=== PATIENT | male | born 1980 | race Caucasian/White ===

== ENCOUNTER → 2024-01-08 07:35 | Outpatient (REF) | payer BC, SELFPAY | LOC: RAD 07:35 | PROVIDERS: ATTENDING PHYSICIAN Student in an Organized Health Care Education/Training Program | DX: M79.605 Pain in left leg (principal); M25.572 Pain in left ankle and joints of left foot | CPT/HCPCS: 93971 ==

== ENCOUNTER 2024-06-30 20:57 | Emergency (ER) | payer BC, SELFPAY ==
[2024-06-30 21:00] VITALS: BP 129/79
[2024-06-30 21:19] LABS: % Basophils 1.7 % (0-2); % Eosinophils 4.9 % (0-6); % Immature Granulocytes 0.5 % (0-0.5); % Lymphocytes 39.6 % (20.5-51.1); % Monocytes 5.9 % (1.7-9.3); % Neutrophils 47.4 % (42.2-75.2); Absolute Basophils 0.1 10^3/uL (0-0.2); Absolute Eosinophils 0.4 10^3/uL (0-0.7); Absolute Lymphocytes 3.1 10^3/uL (1.2-3.4); Absolute Monocytes 0.5 10^3/uL (0.1-0.6); Absolute Neutrophils 3.7 10^3/uL (1.4-6.5); Hematocrit 44.3 % (39.0-52.0); Hemoglobin 14.6 g/dL (13.0-18.0); Mean Corpuscular Hgb 28.2 pg (27.0-31.0); Mean Corpuscular Volume 85.7 fL (80.0-94.0); Mean Platelet Volume 9.6 fL (7.4-10.4); Nucleated Red Blood Cells % 0 % (-); Platelet Count 215 10^3/uL (130-400); Red Blood Cell Count 5.17 10^6/uL (4.70-6.10); Red Cell Dist. Width 14.2 % (11.5-14.5); White Blood Cell Count 7.8 10^3/uL (4.8-10.8)
--- NOTE | 2024-06-30 21:37 | ED.GENMED ---
History of Present Illness
General
Chief Complaint: Urinary Symptoms
Source: patient
Exam Limitations: none
Time Seen by Provider: 06/30/24 21:20
History of Present Illness
History of Present Illness:
43-year-old male who presents with dark-colored urine. Patient states that his a [employer] LOC and noticed he had bilateral upper leg pain. 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
Patient is on anticoagulation due to history of factor V Leiden. Patient denies any other symptoms. Muscle aches are only in the thighs
Past History
Past History
ED Past Medical History: Other (Questionable bowel blockage 20 years ago Patient is not sure, DVT)
ED Past Surgical History: Tonsilectomy
Social History
Tobacco: Non-smoker
Alcohol: Occasional
Personal:
Living: with family
Phy Exam
Physical Exam
Physical Exam:
CONSTITUTIONAL Patient alert and oriented to person, place and time. Well-appearing. Vital signs reviewed.
HEAD atraumatic, normocephalic.
EYES eyelids normal to inspection, Extraocular muscles intact, Conjunctiva normal, Sclera normal.
NECK normal range of motion, Trachea midline, no jugular venous distention.
RESPIRATORY CHEST No respiratory distress noted, Chest expansion equal, Bilateral breath sounds clear.
CARDIOVASCULAR regular rate and rhythm, Heart sounds normal.
BACK normal inspection, no obvious deformities
UPPER EXTREMITY range of motion normal, Motor strength normal, no cyanosis, no edema.
LOWER EXTREMITY range of motion normal, Motor strength normal, no cyanosis, no edema.
NEURO Speech normal, No focal motor deficits, Jose Alberto coma scale 15, Memory normal, Cranial Nerves intact to screening exam.
SKIN skin warm, dry, and normal in color.
Course
Orders/Labs/Results
Orders:
Orders
06/30/24 21:12
Complete Blood Count/With Diff Urgent
Comprehensive Metabolic Panel Urgent
Creatine Phosphokinase Urgent
Comment: ADD ON
06/30/24 21:19
Add On- LAB Urgent
Tests Added?: cpk
06/30/24 21:36
0.9% Sodium Chloride 1000 ml [Nss] 1,000 ml IV BOLUS
06/30/24 22:04
0.9% Sodium Chloride 1000 ml [Nss] 1,000 ml IV BOLUS
Abnormal Lab Results
06/30/24
21:12
Chloride 111 H mmol/L
(98-107)
ALT 51 H U/L
(0-50)
Creatine Kinase 1119 H U/L
(55-170)
06/30/24 21:12
06/30/24 21:12
Vital Signs
Initial and Last Documented VS:
Initial Vital Signs
Temp Pulse Resp BP Pulse Ox
97.3 F 52 16 129/79 100
06/30/24 21:00 06/30/24 21:00 06/30/24 21:00 06/30/24 21:00 06/30/24 21:00
Last Documented Vital Signs
Temp Pulse Resp BP Pulse Ox
97.3 F 63 20 129/76 96
06/30/24 21:00 06/30/24 21:57 06/30/24 21:57 06/30/24 21:57 06/30/24 21:57
MDM/Problems Addressed
Differential Diagnosis Includes:
Rhabdomyolysis, UTI
MDM/Problems Addressed:
Rhabdomyolysis
*Pulse Oximetry
Patient hypoxic: no
*Critical Care Note
Total Time (30-74mins, 75-104mins- exclusive of procedures): Not Applicable
Data Reviewed
Source: patient
Prescriptions/Medications Considered But Not Given:
Consider bicarb but creatinine okay and CPK only mildly
Patient Management
Escalation/DeEscalation of care consider admission/obs:
Mild bump in CPK that likely represents the cause of his symptoms as rhabdomyolysis. However, given his numbers he is well-appearing. Give 2 L of IV fluid and okay for outpatient management
ED Attending Note
-
Portions of this chart may have been created with voice recognition software.� Occasional wrong word or��sound alike� substitutions may have occurred due to the inherent limitations of voice recognition software.
Discharge Plan
Departure
Patient Disposition: Home (Routine Discharge)
Date of Disposition: 06/30/24
Time of Disposition: 22:19
Patient with high blood pressure during this ER visit?: No
Discharge Problem:
Rhabdomyolysis
Instructions: Rhabdomyolysis
Prescriptions:
No Action
allopurinol 100 mg Tablet
100 mg PO DAILY
Xarelto
25 mg PO DAILY
Referrals:
UNKNOWN,NO INTERVIEW [Family Provider] -
Activity Restrictions/Additional Instructions:
Please drink plenty of fluids. Please return immediately for worsening, fevers, difficulty urinating, diminished urine output or any other concerns. Please see your doctor in the next 3 to 5 days for reevaluation and possibly repeat laboratory
studies
Interventions
Interventions:
*Risk Screen - Suicide Last Done: 06/30/24 21:04
*General Assessment Last Done: 06/30/24 21:04
*Neglect/Abuse Screening Last Done: 06/30/24 21:04
*ED COVID-19 Vaccine History Last Done: 06/30/24 21:04
ED-Male Genitourinary Assessment Last Done: 06/30/24 21:57
ED-Musculoskeletal Assessment Last Done: 06/30/24 21:57
Discharge Date and Time
Print Language: COLOM[place]
[2024-06-30 21:39] LABS: ALT (SGPT) 51 U/L (0-50); AST (SGOT) 51 U/L (17-59); Albumin 4.3 g/dl (3.5-5.0); Alkaline Phosphatase 54 U/L (38-126); Blood Urea Nitrogen 14 mg/dl (9-20); Calcium 8.9 mg/dl (8.4-10.2); Carbon Dioxide 26 mmol/L (22-30); Chloride 111 mmol/L (98-107); Creatine Phosphokinase 1119 U/L (55-170); Glucose 85 mg/dl (70-99); Potassium 3.9 mmol/L (3.5-5.1); Sodium 141 mmol/L (135-145); Total Bilirubin 0.8 mg/dl (0.2-1.3); Total Protein 6.9 g/dl (6.3-8.2); eGFR > 60.00
[2024-06-30] MEDS: NSS 1000 IV ×2 (21:44→22:53)
[2024-06-30 21:57] VITALS: BP 129/76
[2024-06-30 22:50] VITALS: BP 120/84
[2024-06-30 22:51] VITALS: BMI 28.9
[2024-06-30 22:53] LABS: Urine Albumin 3+ (Neg - Trace); Urine Bilirubin Negative (Negative); Urine Character Bloody (Clear); Urine Color Amber; Urine Glucose Negative (Negative); Urine Ketone Negative (Negative); Urine Leukocyte 1+ (Negative); Urine Nitrite Positive (Negative); Urine Occult Blood 4+ (Negative); Urine Urobilinogen Negative (Neg - 1+)
[2024-06-30 23:09] LABS: Urine Red Blood Cell >100 /HPF (0-2); Urine Squamous Cell 0-2 /LPF (Few)
[2024-06-30 23:10] LABS: Urine Bacteria Moderate (Negative); Urine Yeast Many (Negative)
== END 2024-07-01 00:10 | disposition home or self-care (01) ==
LOC: EMR 20:57
PROVIDERS: EMERGENCY PHYSICIAN Emergency Medicine
DX: M62.82 Rhabdomyolysis (principal); D68.51 Activated protein C resistance; Z86.718 Personal history of other venous thrombosis and embolism
CPT/HCPCS: 99282; 96360; 80053; 81003; 81015; 82550; 85025; 87086